=== PATIENT | female | born 1950 | race Caucasian/White ===

== ENCOUNTER → 2020-11-17 | Outpatient (CLI) | payer OTHER | LOC: KOH-I 09:48 | DX: M79.672 Pain in left foot (principal); S92.332D Displaced fracture of third metatarsal bone, left foot, subsequent encounter for fracture with routine healing; S92.342D Displaced fracture of fourth metatarsal bone, left foot, subsequent encounter for fracture with routine healing | CPT/HCPCS: 73630 ==

== ENCOUNTER → 2020-12-19 | Outpatient (CLI) | payer OTHER | LOC: KOH-I 08:44 | DX: S92.332D Displaced fracture of third metatarsal bone, left foot, subsequent encounter for fracture with routine healing (principal); S92.341D Displaced fracture of fourth metatarsal bone, right foot, subsequent encounter for fracture with routine healing | CPT/HCPCS: 73630 ==

== ENCOUNTER → 2021-01-19 | Outpatient (CLI) | payer OTHER | LOC: KOH-I 08:34 | DX: S92.332D Displaced fracture of third metatarsal bone, left foot, subsequent encounter for fracture with routine healing (principal); S92.342D Displaced fracture of fourth metatarsal bone, left foot, subsequent encounter for fracture with routine healing; X58.XXXD Exposure to other specified factors, subsequent encounter | CPT/HCPCS: 73630 ==